=== PATIENT | male | born 1930 | race Caucasian/White ===

== ENCOUNTER 2018-11-05 12:49 | Observation (INO) | payer MEDICARE ==
[~2018-11-05] VITALS: Ht 172.7 cm; Wt 79.9 kg
[2018-11-05] MEDS ORDERED: FLOMAX0.4 MG PO (13:26)
[2018-11-05] MEDS ORDERED: PROSCAR5 MG PO (13:27)
--- NOTE | 2018-11-05 15:05 | NUR ---
LOBBY CONCIERGE CHECKED IN WITH PT AND FAMILY. THEY STATED THEY HAD NO NEEDS AT THE TIME. FAMILY WAS ALREADY PRESENT THUS NO ONE NEEDED NOTIFIED. AT THIS POINT IT IS UNKNOWN IF THE PT WILL BE TRANSPORTED. THAT FAMILY ALSO DID NOT HAVE A WORSHIP THAT NEEDED NOTIFIED. THE FAMILY WAS IN GOOD SPIRITS. NO CONCERN FOR THE PT'S OR FAMILY'S SPIRITUAL WELL BEING/NEEDS AT THIS TIME.
--- OUTSIDE RECORDS SUMMARY | 2018-11-05 15:16 | XMS ---
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 Vicente has no Care Guidelines for this patient. Murali VISIT COUNT (12 MO.) 1 [facility] TOTAL 1 NOTE: Visits indicate total known visits. ED/C VISIT TRACKING (12 MO.) 11/05/2018 12:50 [facility] OR TYPE: Emergency COMPLAINT: - STROKE SYMPTOMS INPATIENT VISIT TRACKING (12 MO.) No inpatient visits to display in this time frame [id number]
--- NOTE | 2018-11-05 18:08 | NUR ---
PT ARRIVED ON FLOOR AT 1635. PT IS AAOX4, NO NEUROLOGICAL DEFECITS NOTED WITH NEURO CHECK. OVERALL STRENGTH IS +5. ALL LOBES ARE CLEAR, NO PERIPHERAL EDEMA NOTED. TELE #[address] SHOWES IRREGULAR HR, NO OTHER/NEW CONCERNS NOTED. V/S ARE WDL.
--- NOTE | 2018-11-05 18:18 | NUR ---
PATIENT RESTING IN BED. IN ROOM. VITAL SIGNS AND I&O DONE. CALL LIGHT WITHIN REACH. NO OTHER NEEDS AT THIS TIME
--- NOTE | 2018-11-05 19:10 | NUR ---
BEDSIDE REPORT RECEIVED FROM OFFGOING RN. PT'S FAMILY IN ROOM. ALL QUESTIONS ANSWERED. PT MADE NPO AT THIS TIME. PT AND FAMILY DENY FURTHER NEEDS. CALL LIGHT WITHIN REACH.
--- NOTE | 2018-11-05 20:30 | NUR ---
PT ASSESSMENT COMPLETE. PT DENIES PAIN, NAUSEA, OR SOB. PT DISORIENTED TO DATE, STATES IT IS 4 YEARS AFTER 1913. PT ABLE TO ACCURATELY STATE CURRENT PRESIDENT. PT'S FAMILY STATES THAT PT'S SPEECH IS SLIGHTLY SLURRED FROM PT'S BASELINE. PT IS FORGETFUL THROUGHOUT ASSESSMENT AND MEDICATION ADMINISTRATION. PT ASKING SAME QUESTIONS REPEATEDLY. NEUROCHECK OTHERWISE BENIGN. TELE 3, HR IRREGULAR. PT FAMILY REMAINS AT BEDSIDE. EDUCATION REGARDING POC AND CURRENT ILLNESS REINFORCED TO PATIENT AND FAMILY. EDUCATION REGARDING ACTIVITY RESTRICTIONS AND DIET RESTRICITIONS ALSO REINFORCED. PT AND FAMILY DENY FURTHER QUESTIONS AT THIS TIME. CALL LIGHT WITHIN REACH. ROOM IN VIEW OF RN STATION.
--- NOTE | 2018-11-05 20:40 | NUR ---
PT TO CT WITH ORTHOPEDIC SHOE FITTER AND ELECTRIC GAS APPLIANCES DEMONSTRATOR.
--- NOTE | 2018-11-05 21:02 | NUR ---
BACK TO FLOOR FROM DI -CT SCAN OF HEAD AND NECK COMPLETED
--- NOTE | 2018-11-05 21:38 | NUR ---
INFORMED BY CHILD CARE ATTENDANT THAT PT WAS FOUND OOB AND IN BATHROOM UNASSISTED. PT WITH BED ALARM ACTIVE AT THIS TIME. ROOM IN VIEW OF RN STATION WITH CURTAIN OPEN. FAMILY PRESENT AT BEDSIDE CURRENTLY.
--- NOTE | 2018-11-05 22:18 | EKG ---
[facility] [address] [place], [place] [address] Signed Atrial fibrillation Abnormal ECG No previous ECGs available Confirmed by JETT CONNER DO ([id number]) on 11/05/2018 10:18:39 PM Electronically Signed By: JETT CONNER DO 11/05/18 2218 PATIENT NAME: CARMEN CANO Electrocardiogram DATE OF : 32 PHYSICIAN: JETT CONNER DO REPORT #: [id number] REPORT IS CONFIDENTIAL AND NOT TO BE RELEASED WITHOUT AUTHORIZATION
--- NOTE | 2018-11-05 22:56 | NUR ---
MD IN ROOM TO DISCUSS POC WITH PT'S FAMILY. PT'S FAMILY DENIES FURTHER QUESTIONS OR NEEDS AT THIS TIME. FAMILY REMAINS AT BEDSIDE. PT BED ALARM REMAINS ACTIVE. ROOM IN VIEW OF RN STATION.
--- NOTE | 2018-11-05 23:55 | NUR ---
CONFIRMATION OF AVAILABLE SPACE AND BED GIVEN TO THIS RN VIA PHONE BY STEVEN YBARRA FROM [facility]. PT ACCEPTED UNDER CARE OF DR SAM ROMERO, 10K NEURO FLOOR AND ROOM #2.
--- NOTE | 2018-11-06 00:14 | NUR ---
[facility] CALLED FOR BLS TRANSPORT, AWAITING CALL BACK.
--- NOTE | 2018-11-06 00:30 | NUR ---
[facility] CALLS BACK, UNABLE TO TRANSPORT UNTIL [address] CONNER NOTIFIED VIA PHONE, FURTHER ATTEMPTS FOR TRANSPORTION WILL BE INITIATED. PER DR CONNER IF UNABLE TO SECURE TRANSPORT PRIOR TO 0730 NO NEED TO CONTACT HE WILL CHECK ON TRANSFER IN AM.
--- NOTE | 2018-11-06 00:32 | NUR ---
[facility] CALLED FOR PATIENT TRANSPORT -CLARIFICATION OF PATIENT LEVEL OF TRANSPORT BLS REQUESTED BY NASIMA @ [facility].
--- NOTE | 2018-11-06 00:58 | NUR ---
CALLED DR CONNER AND DISCUSSED LEVEL OF CARE FOR TRANSPORT, PER DR CONNER, S TRANSPORT IS ACCEPTABLE FOR PATIENT. NASIMA @ [facility] NOTIFIED AND ATTEMPTING TO LOCATE CREW.
--- NOTE | 2018-11-06 01:08 | NUR ---
NASIMA FROM [facility]S CALLS BACK AND ACCEPTS TRANSFER - BLS CREW TO ARRIVE IN 35-45 MIN.
--- NOTE | 2018-11-06 01:18 | NUR ---
TALKED TO STEVEN FROM THE TRANSFER CENTER AT [facility], PT ACCEPTED TO [facility] NEURO FLOOR ROOM #2, PAPERWORK FAXED. TRANSPORTATION TO BE DONE BY [facility]. FAMILY NOTIFIED
--- NOTE | 2018-11-06 01:20 | NUR ---
PT'S FAMILY OUT TO RN STATINO TO INFORM TREASURY ANALYST PT NEEDS TO VOID. PT VOIDED INTO URINAL IN BED, TOLERATED WELL. PT'S FAMILY UPDATED RE: TRANSFER. UNDERSTANDING STATED. DENIES FURTHER NEEDS A THIS TIME. CALL LIGHT WITHIN REACH. ROOM IN VIEW OF RN STATION. BED ALARM REMAINS ACTIVE.
--- NOTE | 2018-11-06 01:35 | NUR ---
PT VITAL SIGNS OBTAINED FOR IMPENDING TRANSFER. PT ASSESSMENT COMPLETE. NEURO CHECK WNL, PT REMAINS SLIGHTLY FORGETFUL, UNCHANGED FROM PREVIOUS. REDDENED AREA TO BILATERAL LOWER LEGS UNCHAGED FROM PREVIOUS. PT DENIES ITCHING TO AREA. PT DENIES FURTHER NEEDS AT THIS TIME. FAMILY PRESENT AT BEDSIDE. BED ALARM ACTIVE. ROOM IN VIEW OF RN STATION. CALL LIGHT WITHIN REACH.
--- NOTE | 2018-11-06 02:00 | NUR ---
PT TELE REMOVED. IV SL. [facility] HERE TO TRANSPORT PT TO [facility]. PT TRANSFERED TO [facility]. PT FAMILY PROVIDED WITH ADDRESS TO [facility]. ALL PT PERSONAL BELONGING OBTAINED BY FAMILY.
--- NOTE | 2018-11-06 02:01 | NUR ---
[facility] ST[facility] [address], HERE TO TRANSPORT PT
--- NOTE | 2018-11-06 02:19 | NUR ---
REPORT GIVEN TO [facility] ABOUT PTS ETA.
== END 2018-11-06 02:10 | disposition short-term general hospital (02) ==
LOC: ED 12:49 → MS 12:51
PROVIDERS: ADMIT Student in an Organized Health Care Education/Training Program
DX: I65.22 Occlusion and stenosis of left carotid artery (principal); H02.402 Unspecified ptosis of left eyelid; R47.81 Slurred speech; R26.9 Unspecified abnormalities of gait and mobility; I48.91 Unspecified atrial fibrillation; I10 Essential (primary) hypertension; H91.90 Unspecified hearing loss, unspecified ear; N40.0 Benign prostatic hyperplasia without lower urinary tract symptoms; R29.700 NIHSS score 0; R40.2362 Coma scale, best motor response, obeys commands, at arrival to emergency department; R40.2142 Coma scale, eyes open, spontaneous, at arrival to emergency department; R40.2252 Coma scale, best verbal response, oriented, at arrival to emergency department; Z79.899 Other long term (current) drug therapy; Z88.8 Allergy status to other drugs, medicaments and biological substances; Z96.21 Cochlear implant status
CPT/HCPCS: 70450; 70496; 70498; 71045; 80053; 81001; 84484; 85025; 93005; 93010; 93880; 96374; 96375; 99285-25; G0378; J1200; J2920; J7120; Q9967